=== PATIENT | male | born 1950 | race Caucasian/White ===

== ENCOUNTER → 2018-10-09 | Outpatient (CLI) | payer MEDICARE, OTHER | END | disposition home or self-care (01) | LOC: PCVCCLINIC 15:00 | PROVIDERS: ATTEND Internal Medicine | DX: R06.00 Dyspnea, unspecified (principal); I25.10 Atherosclerotic heart disease of native coronary artery without angina pectoris; E78.5 Hyperlipidemia, unspecified; F17.200 Nicotine dependence, unspecified, uncomplicated | CPT/HCPCS: 36415; 80061; 93005; G0463 ==

== ENCOUNTER → 2018-10-24 | Outpatient (CLI) | payer MEDICARE, OTHER ==
[~2018-10-24] MED LIST: REGADENOSON 0.4 MG/5 ML DISP.SYRIN. IV ONE
--- NOTE | 2018-10-24 14:42 | PCVCIMAG ---
APPROVED REPORT Study performed: 10/24/2018 08:49:34 EXAM: Comprehensive 2D, Doppler, and color-flow Echocardiogram Patient Location: Echo lab Status: routine BSA: 1.95 HR: 82 bpmBP: 122/70 mmHg Rhythm: NSR Other Information Study Quality: Technically Difficult Risk Factors: Cardiac Risk Factors: Hyperlipidemia Indications Dyspnea CAD CABG 2D Dimensions IVSd: 10.13 (7-11mm)LVOT Diam: 18.23 (18-24mm) LVDd: 33.92 mm PWd: 8.63 (7-11mm)Ascending Ao: 32.25 (22-36mm) LVDs: 27.13 (25-40mm) Left Atrium: 30.67 (27-40mm) Aortic Root: 30.39 mm LV Single Plane 4CH: 66.64 % LV Single Plane 2CH: 52.76 % Biplane EF: 60.3 % Volumes Left Atrial Volume (Systole) Single Plane 4CH: 23.25 mLSingle Plane 2CH: 26.96 mL LA ESV Index: 14.00 mL/m2 Aortic Valve AoV Peak Fredrick.: 1.19 m/s AO Peak Gr.: 5.63 mmHgLVOT Max P.55 mmHg LVOT Max V: 0.94 m/s DERRICK Vmax: 2.07 cm2 Mitral Valve E/A Ratio: 1.1 MV Decel. Time: 164.53 ms MV E Max Fredrick.: 0.71 m/s MV A Fredrick.: 0.64 m/s IVRT: 114.19 ms TDI E/Lateral E': 7.89E/Medial E': 6.45 Medial E' Fredrick.: 0.11 m/s Lateral E' Fredrick.: 0.09 m/s Pulmonary Vein P Vein S: 0.60 m/sP Vein A: 0.45 m/s P Vein D: 0.81 m/sP Vein A Dur.: 100.3 msec P Vein S/D Ratio: 0.74 Tricuspid Valve TR Peak Fredrick.: 2.65 m/s TR Peak Gr.: 28.01 mmHg Left Ventricle The left ventricle is normal size. There is normal LV segmental wall motion. There is normal left ventricular wall thickness. Left ventricular systolic function is normal. The left ventricular ejection fraction is within the normal range. LVEF is 60%. Right Ventricle The right ventricle is normal size. The right ventricular systolic function is normal. Atria The left atrium size is normal. The right atrium size is normal. Aortic Valve The aortic valve is normal in structure. No aortic regurgitation is present. There is no aortic valvular stenosis. Mitral Valve The mitral valve is normal in structure. There is no mitral valve regurgitation noted. No evidence of mitral valve stenosis. Tricuspid Valve The tricuspid valve is normal in structure. Trace tricuspid regurgitation. Pulmonary artery pressure is 35mmHg. Pulmonic Valve The pulmonary valve is normal in structure. There is no pulmonic valvular regurgitation. Great Vessels The aortic root is normal in size. IVC is normal in size and collapses >50% with inspiration. Pericardium There is no pericardial effusion. <Conclusion> The left ventricle is normal size. LVEF is 60%. The aortic valve is normal in structure. The mitral valve is normal in structure. The tricuspid valve is normal in structure. Trace tricuspid regurgitation. Pulmonary artery pressure is 35mmHg. The pulmonary valve is normal in structure. There is no pericardial effusion.
--- NOTE | 2018-10-25 09:53 | PCVCIMAG ---
APPROVED REPORT Imaging Protocol: Rest Tc-99m/Stress Tc-99m 1 day Study performed: 10/24/2018 10:20:29 Indication: CAD, DOT [employer] Patient Location: Out-Patient Stress Tech: SLY Kern Stress Nurse: Brigette Meza RN, Julissa Henson RN NM Tech:SLY Hill Ht: 5 ft 8 in Wt: 180 lbs BSA: 1.95 m2 HR: 88 bpm BP: 144/65 mmHg BMI: 27.36 Rhythm: Sinus Rythm, RBBB, Bifascicular Block Medical History Medical History: CABG, Age, Hyperlipidemia, CAD, Current Smoker Medications: ASA, Crestor, Chantix Allergies: No known drug allergies Previous Cardiac Procedures: 2008 CABG Pretest Chest Pain Characteristics: No chest pain Resting Data Rest SPECT myocardial perfusion imaging was performed in supine position 45 minutes following the intravenous injection of 10.3 mCi of Tc-99m Sestamibi. Time of rest injection: 0930 Date: 10/24/2018 Administration Route: IV Administration Site: Right AC Pharmacologic Stress Pharmacologic stress test was performed by injecting Regadenoson 0.4 mg IV push over 10-15 seconds immediately followed by the intravenous injection of 34.0 mCi of Tc-99m Sestamibi. Time of stress injection: 1100 Date: 10/24/2018 Administration Route: IV Administration Site: Right AC Heart Rate at time of stress injection: 88 bpm. Gated Stress SPECT was performed 45 minutes after stress injection. The images were gated to evaluate regional wall motion and calculate left ventricular ejection fraction. Stress only was performed in the Supine position. Stress Test Details Stress Test: Pharmacologic stress testing performed using 0.4 mg of regadenoson per 5 mL given IV over 10 seconds. Reason for pharmacologic stress test: Claudication. HRMax Heart Rate (APMHR): 155 bpm Resting HR: 88 bpmTarget HR (85% APMHR): 131 bpm Max HR Achieved: 113 bpm % of APMHR: 72 Recovery HR: 98 bpm BP Resting BP: 144/65 mmHg Max BP: 145/92 mmHg Recovery BP: 134/62 mmHg ECG Resting ECG: Sinus Rhythm, RBBB, Bifascicular Block Stress ECG: Sinus Tachycardia, RBBB, Bifascicular Block Arrhythmia: None Recovery ECG: Sinus Tachycardia, RBBB, Bifascicular Block Clinical Reason for Termination: Completed protocol Stress Symptoms: Dyspnea, Lightheaded Symptoms resolved with caffeine. Stress ECG Conclusion 1. Adequate response to intravenous Lexiscan 2. Inadequate heart rate for ECG diagnosis Study Data Post stress, the left ventricular ejection was 71%.. SSS: 0 SRS: 0 SDS: 0 TID = 1.00. Perfusion There is a largesmall area of mildly reduced uptake in the basal segment of the inferior wall which is seen on the stress images and improves on the resting images. This area thickens and moves normally although there appears to be some delayed contractility and a small basilar segment and is most consistent with ischemia although attenuation artifact cannot be excluded. Nuclear Conclusion ECG Findings: non-diagnostic Clinical Findings: negative for ischemia Nuclear Findings: equivocal Exercise Capacity: not assessed Left Ventricular Function: normal 1. Low to intermediate risk study based on a small region of the basilar inferior wall that demonstrated mild improvement during rest 2. Post exercise left ventricular ejection fraction 71% with overall normal contractility <Conclusion> 1. Adequate response to intravenous Lexiscan 2. Inadequate heart rate for ECG diagnosis
== END | disposition home or self-care (01) ==
LOC: PCVCIMAG 08:46
PROVIDERS: ATTEND Internal Medicine
DX: I25.10 Atherosclerotic heart disease of native coronary artery without angina pectoris (principal); E78.5 Hyperlipidemia, unspecified; R06.00 Dyspnea, unspecified
CPT/HCPCS: 78452; 93017; 93306; A9500; J2785

== ENCOUNTER → 2018-10-30 | Outpatient (CLI) | payer MEDICARE, OTHER | END | disposition home or self-care (01) | LOC: PCVCCLINIC 13:07 | PROVIDERS: ATTEND Internal Medicine | DX: I25.10 Atherosclerotic heart disease of native coronary artery without angina pectoris (principal); R06.00 Dyspnea, unspecified; E78.5 Hyperlipidemia, unspecified; F17.200 Nicotine dependence, unspecified, uncomplicated; Z79.82 Long term (current) use of aspirin | CPT/HCPCS: G0463 ==

== ENCOUNTER → 2019-03-04 | Outpatient (CLI) | payer MEDICARE, OTHER | END | disposition home or self-care (01) | LOC: PCVCCLINIC 14:00 | PROVIDERS: ATTEND Internal Medicine | DX: I25.10 Atherosclerotic heart disease of native coronary artery without angina pectoris (principal); E78.5 Hyperlipidemia, unspecified; F17.200 Nicotine dependence, unspecified, uncomplicated; R51 Headache; F17.210 Nicotine dependence, cigarettes, uncomplicated; Z79.82 Long term (current) use of aspirin; Z79.899 Other long term (current) drug therapy; Z82.49 Family history of ischemic heart disease and other diseases of the circulatory system | CPT/HCPCS: 36415; 80061; 93005; G0463 ==